=== PATIENT | male | born 1945 | race Caucasian/White ===

== ENCOUNTER → 2017-04-15 | Day surgery (SDC) | payer BC ==
[2017-04-12 11:10] VITALS: BMI 26.0
[~2017-04-15] VITALS: Ht 165.1 cm; Wt 72.7 kg
[~2017-04-15] MED LIST: AMINLIQ31 PO; AMIO0.1T PO; ATOR-24 PO; CEFAZOLIN 1000MG/55 ML D5W IV SCH; CLOP1TAB15 PO; D5W AND 1/4NSS 1,000 ML IV SCH; ERGO1CAP35 PO; FENTANYL CITRATE INJ 50 MCG/1 ML 2 ML VIAL IV ONE; FENTANYL CITRATE INJ 50 MCG/1 ML 2 ML VIAL ONE; FLUT0.15 INTNAS; INSDGI SC; LEVO50TA6 PO; LIDOCAINE HCL 1% 20 ML VIAL INJ ONE; LOSA1TAB PO; METO25TA56 PO; MIDAZOLAM HCL 1 MG/ML 2ML VIAL IV ONE; MIDAZOLAM HCL 1 MG/ML 2ML VIAL ONE; NVLGI SC; OPTIRAY 300 IV ONE; PANT40TA PO; SEVE800T7 PO; SODIUM CHLORIDE 0.9% 1000ML 1,000 ML IV SCH; TAMS0.4C38 PO; TCMD1 PO
[2017-04-15 06:33] VITALS: BP 119/64; PULSE 78; TEMP 36.6; O2SAT 97; Ht 165.1 cm; Wt 72.7 kg
--- NOTE | 2017-04-15 07:04 | History and Physical ---
History & Physical Date of Service Apr 15, 2017. History & Physical CC: End stage renal disease on dialysis with malfunctioning fistula HPI: Mr. De La Fuente is a 70-year-old gentleman who is having dialysis through a right arm fistula for a year now. The fistula is not running well at this time. There is still a thrill and bruit. Allergies: None known. Medications: Were reviewed and documented on the chart. No changes were made. Past medical history: Positive for coronary artery disease with placement of 2 stents, hypertension, diabetes and renal failure. Operations and procedures: Was a cholecystectomy in the past and coronary artery stenting. Family history: Positive for heart disease, hypertension, diabetes and renal insufficiency. Social history: He does not smoke. He does not drink. Review of Systems: 10 systems were reviewed today is only positive findings were mild heart failure and frequent bladder infections. Physical examination: The patient is awake, oriented x3. His blood pressure is 122/64 in the right, 124/60 on the left. Head and neck within normal limits. I could not appreciate carotid bruits. Lungs were clear. Heart had regular rate and rhythm. Abdominal exam is benign. I cannot appreciate any aneurysmal dilatation of the aorta. Vascular exam was radials, carotids, superior temporal arteries +2 bilaterally. Femorals are +2 bilaterally. Pedals are +2 in both feet. Neurologic exam is grossly intact. Upper extremity exam shows there were veins visualized in the left arm. The right arm had a fistula with a thrill and bruit. There was a scar in his arm which he claims is from infiltration of an IV when he was hospitalized. Impression: Imp: End-stage renal disease Mal functioning fistula. Plan/recommendations: Patient is admitted for a fistulogram with possible intervention. I have discussed the risks options and benefits of the procedure with the patient. The patient understands the risks options and benefits and agrees to the procedure.
--- NOTE | 2017-04-15 07:05 | Procedure Note ---
Pre-Mod Sedation Assessment General Date of Moderate Sedation: Apr 15, 2017. Vital Signs: Vital Signs Past 12 Hours Date Time Temp Pulse Resp B/P (MAP) Pulse Ox O2 Delivery O2 Flow Rate FiO2 04/15/17 06:33 36.6 78 18 119/64 (82) 97 Room Air Pre-Sedation Airway Assessment Oral Cavity: WNL Hx of Sleep Apnea: No Smoking Status: Never Smoker Mallampati Classification: Class I ASA Classification: Class III Notes The planned sedation has been discussed with the patient and consent obtained. I have identified the patient, determined the appropriateness of sedation and have assessed the patient immediately prior to the procedure. All medicine(s) and interventions are by my order.
[2017-04-15 07:49] LABS: PARTIAL THROMBOPLASTIN RATIO 1.4; PROTHROMBIN TIME (PATIENT) 22.5 SECONDS (9.0-12.0)
[2017-04-15 07:54] VITALS: BP 119/64; PULSE 78; TEMP 36.6; O2SAT 97
[2017-04-15 07:57] LABS: BUN/CREATININE RATIO 6.3 (10-20); CALCIUM 8.4 mg/dl (8.5-10.1); CREATININE 3.5 mg/dl (0.60-1.40); POTASSIUM 4.2 mmol/L (3.5-5.1)
--- NOTE | 2017-04-15 08:40 | [facility] Post Operative Brief Note ---
Immediate Operative Summary Operative Date Apr 15, 2017. Pre-Operative Diagnosis malfunctioning fistula Post-Operative Diagnosis same Procedure(s) Performed Fistulogram, Percutaneous Transluminal Angioplasty Venous, Moderate Concious Sedation [address] Yates Tractor Technician Surgeon(s) none Estimated Blood Loss 3 ml Findings good thrill, no residual stenosis Specimens none Anesthesia Local with sedation Complication(s) None Disposition
--- NOTE | 2017-04-15 08:41 | Procedure Note ---
Post-Moderate Sedation Plan General Date of Moderate Sedation Apr 15, 2017. Vital Signs: Vital Signs Past 12 Hours Date Time Temp Pulse Resp B/P (MAP) Pulse Ox O2 Delivery O2 Flow Rate FiO2 04/15/17 08:34 58 18 111/63 100 Nasal Cannula 4 04/15/17 07:54 36.6 78 18 119/64 97 Room Air 04/15/17 06:33 36.6 78 18 119/64 (82) 97 Room Air Review - Discharge Plan Post Moderate Sedation Plan: On clinical assessment, the patient appears to have tolerated the conscious sedation without complications. Patient is recovering as anticipated. Patient will continue to be monitored by nursing and may be discharged when conscious sedation discharge criteria are met.
[2017-04-15 08:43] VITALS: BP 107/63; PULSE 62; TEMP 36.7; O2SAT 98
--- NOTE | 2017-04-15 08:45 | Discharge Instructions ---
Discharge Instructions Date of Service Apr 15, 2017. Visit Reason for Visit: End Stage Renal Disease -On Hemodialysis Discharge Discharge Diagnosis / Problem: Malfunctioning fistula Discharge Goals Goal(s): Therapeutic intervention Activity Recommendations Activity Limitations: resume your previous activity Anesthesia . Post Anesthesia Instructions: If you have had General Anesthesia or IV Sedation: * Do not drive today. * Resume driving when surgeon permits. * Do not make important decisions or sign legal documents today. * Call surgeon for: 1. Temperature elevations greater than 101 degrees F. 2. Uncontrollable pain. 3. Excessive bleeding. 4. Persistent nausea and vomiting. 5. Medication intolerance (nausea, vomiting or rash). * For nausea and vomiting use only clear liquids such as: tea, soda, bouillon until nausea subsides, then gradually increase diet as tolerated. * If you have any concerns or questions, call your surgeon's office. If physician is unavailable and it is an emergency, call 911 or go to the nearest emergency room. . Instructions / Follow-Up Instructions / Follow-Up Call [phone] with any questions or concerns. SPECIAL CARE INSTRUCTIONS: Medications: * Continue to take your medications as directed. If you have been given a prescription for Plavix, please fill it immediately and take as directed. Incision Care: * Your puncture site may have some bruising and minor swelling for about one week. * You will have a small dressing covering your puncture site. You may remove the dressing after 24 hours and shower. You may let the warm soapy water run over it, but be sure to dry the puncture site well and keep it dry. * DO NOT IMMERSE THE INCISION IN A TUB/POOL/etc. UNTIL HEALED. * Puncture sites should be kept covered with a band-aid until it begins to heal. Restrictions: * Depending on whether you leg or arm was punctured to access the arteries, you will be required to lay flat, hold your arm still, or both, for about 4 hours after the procedure to prevent bleeding. * Limit your activity for the first 48 hours. You may walk and go up and down steps. Avoid excessive bending or movement at the puncture site. Possible Complications: * Excessive Swelling - after blood flow is improved you may notice increased swelling in the lower legs. This is a normal response. This usually depends on the amount of blockages in the leg, how long they have been there prior to your procedure and how much blood flow was restored. Elevating your legs will help to improve this. Please notify our office ([phone] ) if the swelling does not go away after lying in bed overnight. * Infection/Drainage/Bleeding - Drainage or bleeding from the puncture site should be minimal. If you have excessive bleeding or drainage, call our office ([phone]) right away. * Pain - You may experience some mild pain or soreness at your puncture site. If your pain does not improve, please contact our office ([phone]). Call your doctor and seek emergent treatment if you develop: * Temperature above 101 degrees * Any fever or chills * Any redness or purulent drainage from the puncture site * Any new dusky/blue colored toes or feet with coolness or sharp or aching pain. SKIN IRRITATION: * You may experience some redness and/or swelling in the area where radiation was administered. If any skin irritation occurs, please contact your family physician. FOLLOW UP VISIT: Keep any scheduled doctor appointments. Diet Recommendations Recommended Home Diet: resume previous diet Procedures Procedures Performed: Fistulogram, Percutaneous Transluminal Angioplasty Venous, Moderate Concious Sedation 0822 to 0833 Pending Studies Studies pending at discharge: no Medical Emergencies . Who to Call and When: Medical Emergencies: If at any time you feel your situation is an emergency, please call 911 immediately. . Non-Emergent Contact Non-Emergency issues call your: Surgeon . . "Provider Documentation" section prepared by Tonio Yates. .
--- NOTE | 2017-04-15 08:56 | [facility] Operative Report ---
Operative Report Operative Date Apr 15, 2017. Pre-Operative Diagnosis malfunctioning fistula Post-Operative Diagnosis same Procedure(s) Performed Fistulogram, Percutaneous Transluminal Angioplasty Venous, Moderate Concious Sedation [address] Yates Judo Instructor Surgeon(s) none Estimated Blood Loss 3 ml Findings good thrill, no residual stenosis Specimens none Anesthesia Local with sedation Complication(s) None Disposition Indications This patient's a 71-year-old white male with a right upper arm fistula. They had difficulty with dialysis through the fistula. A fistulogram was recommended with possible intervention. The patient understood the risks options and benefits and agreed to go ahead with this procedure. Description of Procedure The patient was taken to the angiogram suite and placed in the supine position. The right arm was then prepped and draped in a sterile manner. Local anesthetic was administered and a percutaneous puncture was then made of the proximal portion of the right arm AV fistula using micropuncture technique. Micropuncture wire and sheath were then inserted. A fistulogram was then performed. This showed the venous outflow to be widely patent with no evidence of stenosis. We then compressed the fistula and did a retrograde injection which showed a question of some slight narrowing just beyond the arterial anastomosis in the fistula. It was decided to treat this with a balloon angioplasty. The local anesthetic was then administered to the distal end of the fistula. A retrograde puncture was then made again using micropuncture technique. The wire was then inserted. The micropuncture sheath was then placed. An 035 wire was inserted and the micropuncture sheath exchanged for a 5 [place] sheath. An 0.35 guidewire was then passed through the sheath and through the arterial anastomosis. A 4 x 2 [place] balloon was then used to dilate the the stenotic area to 21 brenna of pressure. Excellent results were seen with no residual stenosis in that area. There is a good palpable thrill throughout the fistula at that time. The sheath was then pulled and pressure was applie. Adequate hemostasis was obtained. The first sheath was pulled prior to the placement of the second sheath. The patientl left the angiogram suite in good condition and tolerated the procedure well. I attest to the content of the Intraoperative Record and any orders documented therein. Any exceptions are noted below.
[2017-04-15 08:58] VITALS: BP 102/54; PULSE 60; O2SAT 99
[2017-04-15 09:13] VITALS: BP 102/53; PULSE 58; TEMP 36.5; O2SAT 100
== END | disposition home or self-care (01) ==
LOC: C.ACU 05:39
PROVIDERS: ATTEND Surgery Vascular Surgery
DX: T82.898A Other specified complication of vascular prosthetic devices, implants and grafts, initial encounter (principal); Y82.8 Other medical devices associated with adverse incidents; N18.6 End stage renal disease; I25.10 Atherosclerotic heart disease of native coronary artery without angina pectoris; Z95.818 Presence of other cardiac implants and grafts; I12.0 Hypertensive chronic kidney disease with stage 5 chronic kidney disease or end stage renal disease; Z90.49 Acquired absence of other specified parts of digestive tract; E11.9 Type 2 diabetes mellitus without complications; I25.2 Old myocardial infarction; I48.91 Unspecified atrial fibrillation; K21.9 Gastro-esophageal reflux disease without esophagitis; Z79.01 Long term (current) use of anticoagulants; Z79.4 Long term (current) use of insulin; E78.5 Hyperlipidemia, unspecified; E03.9 Hypothyroidism, unspecified; Z99.2 Dependence on renal dialysis

== ENCOUNTER 2017-11-25 06:32 | Day surgery (SDC) | payer BC ==
[2017-11-09 07:28] VITALS: BMI 26.0
[~2017-11-25] VITALS: Ht 165.1 cm; Wt 73.0 kg
[~2017-11-25 06:32] MED LIST changes: +CEFAZOLIN 1000MG IV PUSH 7.5 ML IV SCH; -CEFAZOLIN 1000MG/55 ML D5W IV SCH; -D5W AND 1/4NSS 1,000 ML IV SCH; -ERGO1CAP35 PO; +ERGO500011 PO; -FENTANYL CITRATE INJ 50 MCG/1 ML 2 ML VIAL IV ONE; -FENTANYL CITRATE INJ 50 MCG/1 ML 2 ML VIAL ONE; -LEVO50TA6 PO; +LEVO75TA5 PO; -LIDOCAINE HCL 1% 20 ML VIAL INJ ONE; -MIDAZOLAM HCL 1 MG/ML 2ML VIAL IV ONE; -MIDAZOLAM HCL 1 MG/ML 2ML VIAL ONE; -NVLGI SC; -OPTIRAY 300 IV ONE; -SEVE800T7 PO; +SODIUM CHLORIDE 0.9% 1000ML IV ONE; +VNTHFA/IN INH
--- NOTE | 2017-11-25 07:20 | History and Physical ---
History & Physical Date of Service Nov 25, 2017. History & Physical History & Physical CC: End stage renal disease on dialysis with malfunctioning fistula HPI: Mr. De La Fuente is a 70-year-old gentleman who is having dialysis through a right arm fistula for over a year now. He had angioplasty done in April of last year with good results. The fistula is not running well at this time. There is still a thrill and bruit. Allergies: None known. Medications: Were reviewed and documented on the chart. No changes were made. Past medical history: Positive for coronary artery disease with placement of 2 stents, hypertension, diabetes and renal failure. Operations and procedures: Was a cholecystectomy in the past and coronary artery stenting. Family history: Positive for heart disease, hypertension, diabetes and renal insufficiency. Social history: He does not smoke. He does not drink. Review of Systems: 10 systems were reviewed today is only positive findings were mild heart failure and frequent bladder infections. Physical examination: The patient is awake, oriented x3. His blood pressure is 122/64 in the right, 124/60 on the left. Head and neck within normal limits. I could not appreciate carotid bruits. Lungs were clear. Heart had regular rate and rhythm. Abdominal exam is benign. I cannot appreciate any aneurysmal dilatation of the aorta. Vascular exam was radials, carotids, superior temporal arteries +2 bilaterally. Femorals are +2 bilaterally. Pedals are +2 in both feet. Neurologic exam is grossly intact. Upper extremity exam shows there were veins visualized in the left arm. The right arm had a fistula with a thrill and bruit. There was a scar in his arm which he claims is from infiltration of an IV when he was hospitalized. Impression: Imp: End-stage renal disease Mal functioning fistula. Plan/recommendations: Patient is admitted for a revision of his right arm fistula. I have discussed the risks options and benefits of the procedure with the patient. The patient understands the risks options and benefits and agrees to the procedure.
[2017-11-25 07:38] VITALS: BP 120/68; PULSE 81; TEMP 36.8; O2SAT 97; Ht 165.1 cm; Wt 73.0 kg
[2017-11-25 07:52] LABS: INR 1.7 (0.9-1.1); PTT PATIENT 37.7 SECONDS (21.0-31.0)
[2017-11-25 07:57] LABS: CALCIUM 8.3 mg/dl (8.5-10.1); CREATININE 3.97 mg/dl (0.60-1.40); POTASSIUM 3.7 mmol/L (3.5-5.1)
[2017-11-25] MEDS ORDERED: BUPIVACAINE/EPINEPHRINE 0.5% MPF 1:200,000 30 ML VIAL ONE (08:58)
[2017-11-25] MEDS ORDERED: HEPARIN SOD (PORCINE) 1000 UNIT/ML 10 ML VIAL ONE ×2 (08:58→10:10)
[2017-11-25] MEDS ORDERED: THROMBIN FOR SOLN 20000 UNIT KIT ONE (08:58)
[2017-11-25] MEDS ORDERED: LIDOCAINE HCL 1% 20 ML VIAL ONE (08:58)
[2017-11-25] MEDS ORDERED: GELATIN SPONGE 12-7MM ONE (08:58)
[2017-11-25] MEDS ORDERED: MIDAZOLAM HCL 1 MG/ML 2ML VIAL ONE (09:37)
[2017-11-25] MEDS ORDERED: FENTANYL CITRATE INJ 50 MCG/1 ML 2 ML VIAL ONE (09:40)
[2017-11-25] MEDS ORDERED: PROPOFOL IV EMULSION 10 MG/ML 20 ML VIAL IV ONE (10:34)
--- NOTE | 2017-11-25 10:40 | [facility] Post Operative Brief Note ---
Immediate Operative Summary Operative Date Nov 25, 2017. Pre-Operative Diagnosis Malfunctioning Right Upper Extremity Arteriovenous Fistula Post-Operative Diagnosis Malfunctioning Right Upper Extremity Arteriovenous Fistula Procedure(s) Performed Revision Right Upper Extremity Arteriovenous Fistula Surgeon Dr Yates Marketing And Promotions Manager Surgeon(s) Vicky Alvarez MD, Stella Moore PA-C Estimated Blood Loss 25cc Findings Consistent with Post-Op Diagnosis Specimens None per surgeon Drains None Anesthesia Type MAC Complication(s) none Disposition Accompanied Pt To Recover: no Disposition: Recovery Room / PACU
[2017-11-25] MEDS ORDERED: OXYC-57 PO (10:54)
--- NOTE | 2017-11-25 10:56 | Discharge Instructions ---
Discharge Instructions Date of Service Nov 25, 2017. Visit Reason for Visit: End Stage Renal Disease Discharge Discharge Diagnosis / Problem: Malfunctioning right arm fistula Discharge Goals Goal(s): Therapeutic intervention Activity Recommendations Activity Limitations: per Instructions/Follow-up section Anesthesia . Post Anesthesia Instructions: If you have had General Anesthesia or IV Sedation: * Do not drive today. * Resume driving when surgeon permits. * Do not make important decisions or sign legal documents today. * Call surgeon for: 1. Temperature elevations greater than 101 degrees F. 2. Uncontrollable pain. 3. Excessive bleeding. 4. Persistent nausea and vomiting. 5. Medication intolerance (nausea, vomiting or rash). * For nausea and vomiting use only clear liquids such as: tea, soda, bouillon until nausea subsides, then gradually increase diet as tolerated. * If you have any concerns or questions, call your surgeon's office. If physician is unavailable and it is an emergency, call 911 or go to the nearest emergency room. . Instructions / Follow-Up Instructions / Follow-Up Call [phone] to schedule a follow up appointment if one not already scheduled. ACTIVITY RECOMMENDATIONS: See Above SPECIAL CARE INSTRUCTIONS: Call your doctor if: * Temperature above 101 degrees * Pain not relieved by pain medicine ordered * There is increased drainage or redness from any incision * You have any unanswered questions or concerns. Diet Recommendations Recommended Home Diet: resume previous diet Procedures Procedures Performed: Revision Right Upper Extremity Arteriovenous Fistula Pending Studies Studies pending at discharge: no Medical Emergencies . Who to Call and When: Medical Emergencies: If at any time you feel your situation is an emergency, please call 911 immediately. . Non-Emergent Contact Non-Emergency issues call your: Surgeon . . "Provider Documentation" section prepared by Tonio Yates. .
[2017-11-25] MEDS ORDERED: ONDANSETRON INJ 2 MG/ML 2 ML VIAL IV PRN (11:00)
[2017-11-25] MEDS ORDERED: ATROPINE SULFATE 0.1 MG/ML 5ML SYR IV PRN (11:00)
[2017-11-25] MEDS ORDERED: LABETALOL HCL IV 5 MG/ML 20ML IV PRN (11:00)
[2017-11-25] MEDS ORDERED: FENTANYL CITRATE INJ 50 MCG/1 ML 2 ML VIAL IV PRN (11:00)
[2017-11-25] MEDS ORDERED: EpHEDrine SULFATE INJ 50 MG/ML AMP IV PRN (11:00)
--- NOTE | 2017-11-25 11:37 | Anesthesiology Progress Note ---
Anesthesia Post Op Note Date & Time Nov 25, 2017 at 11:37 Vital Signs Pain Intensity: 0 Vital Signs Past 12 Hours Date Time Temp Pulse Resp B/P (MAP) Pulse Ox O2 Delivery O2 Flow Rate FiO2 11/25/17 11:31 128/59 11/25/17 11:30 36.0 66 22 128/59 96 Room Air 11/25/17 11:29 64 12 96 11/25/17 11:29 63 12 11/25/17 11:26 122/58 11/25/17 11:25 66 20 122/58 97 Room Air 11/25/17 11:24 67 14 11/25/17 11:24 67 14 98 11/25/17 11:21 128/60 11/25/17 11:19 67 19 98 11/25/17 11:19 67 19 11/25/17 11:16 114/58 11/25/17 11:15 67 13 114/58 97 Room Air 11/25/17 11:14 67 18 98 11/25/17 11:14 68 18 11/25/17 11:11 118/52 11/25/17 11:09 10 11/25/17 11:09 36.0 84 10 117/52 98 Room Air 11/25/17 11:09 10 11/25/17 07:38 36.8 81 20 120/68 (85) 97 Room Air Notes Mental Status: alert / awake / arousable, participated in evaluation Pt Amnestic to Procedure: Yes Nausea / Vomiting: adequately controlled Pain: adequately controlled Airway Patency, RR, SpO2: stable & adequate BP & HR: stable & adequate Hydration State: stable & adequate Anesthetic Complications: no major complications apparent
[2017-11-25 11:43] VITALS: BP 104/56; PULSE 71; TEMP 36.3; O2SAT 95
--- NOTE | 2017-11-25 12:02 | OPERATIVE REPORT ---
DATE OF OPERATION: 11/25/2017 PREOPERATIVE DIAGNOSIS: Malfunctioning right upper extremity arteriovenous fistula. POSTOPERATIVE DIAGNOSIS: Same. PROCEDURE: Right upper extremity brachiocephalic fistula revision. SURGEON: Dr. Tonio Yates. ASSISTANTS: Dr. Vicky Alvarez and Stella Moore PA-C. ANESTHESIA: Local plus conscious sedation. ESTIMATED BLOOD LOSS: 25. FLUIDS: 300. URINE OUTPUT: Not recorded. COMPLICATIONS: None apparent. FINDINGS: Venous stenosis at the proximal anastomosis. CONDITION: Stable to PACU. INDICATIONS: Mr. Carmelo De La Fuente is a 72-year-old male with end-stage renal disease, on hemodialysis, with a malfunctioning right upper extremity AV fistula. He underwent a previous fistulogram which showed stenosis of the proximal vein at the arterial stenosis. Because of this, he was offered revision of his fistula by transposing the vein a little bit more proximal on the artery. He agreed to undergo the above procedure. DESCRIPTION OF PROCEDURE: The patient was brought into the operative suite. He was prepped and draped in usual fashion. A timeout occurred. Local was instilled and an incision was made just above the antecubital fossa over the fistula and curved on the brachial artery. The brachial artery was identified and dissected out. The fistula was then identified and freed up for several centimeters. The fistula was ligated just past the proximal stenosis. Heparin 3000 units was instilled. The proximal stump of the fistula was oversewn. The distal part had sufficiently freed up to transverse more proximal in the brachial artery. Two angled DeBakey clamps were applied to the brachial artery. Arteriotomy was made with an 11-blade. This was extended with Adams scissors to be approximately 7 mm. The current fistula was then sewn in in an end-to-side fashion with 6-0 Prolene. Prior to the last stitch was placed, everything was flushed and all bubbles were removed. Upon completion of the fistula, there was a great thrill palpated throughout the fistula. Then, the skin was closed with 3-0 and 4-0 Vicryl. The patient was then transferred to PACU in stable condition. Dr. Tonio Yates was present for the entirety of this case. I attest to the content of the Intraoperative Record and any orders documented therein. Any exception s are noted below.
[2017-11-25 12:15] VITALS: BP 102/55; PULSE 64; TEMP 36.4; O2SAT 98
== END 2017-11-25 12:28 | disposition home or self-care (01) ==
LOC: C.ACU 06:32
PROVIDERS: ATTEND Surgery Vascular Surgery
DX: T82.858A Stenosis of other vascular prosthetic devices, implants and grafts, initial encounter (principal); Y83.8 Other surgical procedures as the cause of abnormal reaction of the patient, or of later complication, without mention of misadventure at the time of the procedure; N18.6 End stage renal disease; I12.0 Hypertensive chronic kidney disease with stage 5 chronic kidney disease or end stage renal disease; E03.9 Hypothyroidism, unspecified; I25.10 Atherosclerotic heart disease of native coronary artery without angina pectoris; Z95.5 Presence of coronary angioplasty implant and graft; I25.2 Old myocardial infarction; Z98.890 Other specified postprocedural states; Z82.49 Family history of ischemic heart disease and other diseases of the circulatory system; Z83.3 Family history of diabetes mellitus; Z84.1 Family history of disorders of kidney and ureter